=== PATIENT | male | born 1950 | race Caucasian/White ===

== ENCOUNTER 2020-09-23 13:07 | Emergency (ER) | payer MEDICARE ==
[~2020-09-23] VITALS: Ht 188 cm; Wt 82.6 kg
[2020-09-23] MEDS ORDERED: METHYLPREDNISOLONE SOD SUCC 125 MG/2ML VIAL IV STA (13:42)
[2020-09-23] MEDS ORDERED: FAMOTIDINE 20 MG/2 ML VIAL IV STA (13:42)
[2020-09-23] MEDS ORDERED: SODIUM CHLORIDE 0.9% 1000ML 1,000 ML IV STA (13:42)
[2020-09-23] MEDS ORDERED: DIPHENHYDRAMINE HCL INJ 50 MG/ML VIAL IV ONE (13:45)
[2020-09-23 15:47] VITALS: BP 111/68
== END 2020-09-23 15:49 | disposition home or self-care (01) ==
LOC: ER 13:44
DX: T78.40XA Allergy, unspecified, initial encounter (principal); Y92.096 Garden or yard of other non-institutional residence as the place of occurrence of the external cause
CPT/HCPCS: 99283; J1200; J2930; J7030

== ENCOUNTER 2020-12-24 11:18 | Inpatient (IN) | payer MEDICARE ==
[2020-12-24] VITALS (12 sets, daily range): BP systolic 106–148; BP diastolic 69–118
[~2020-12-24] VITALS: Ht 188 cm; Wt 85.9 kg
[2020-12-24] MEDS ORDERED: PIPERACILLIN/TAZOBACTAM 3.375 GM in SODIUM CHLORIDE 0.9% 50ML 50 ML IV STA (11:40)
[2020-12-24] MEDS ORDERED: SODIUM CHLORIDE 0.9% 1000ML 2,000 ML ONE (11:42)
[2020-12-24 11:44] LABS: BASOPHILS # (AUTO) 0.1 (0.0-0.1); BASOPHILS % 0.4 % (0.0-1.0); EOSINOPHILS # (AUTO) 0.1 (0.0-0.4); EOSINOPHILS % 0.2 % (0.0-6.0); HEMATOCRIT 43.7 % (38.2-49.6); HEMOGLOBIN 13.8 g/dL (14.0-18.0); LYMPHOCYTES # (AUTO) 1.6 (1.0-3.2); LYMPHOCYTES % 5.6 % (18.0-39.1); MEAN CORPUSCULAR HEMOGLOBIN 28.5 pg (28-32); MEAN CORPUSCULAR HGB CONC 31.6 g/dL (31-35); MEAN CORPUSCULAR VOLUME 90.3 fL (81-99); MONOCYTES # (AUTO) 0.8 (0.2-0.8); MONOCYTES % 2.8 % (4.4-11.3); NEUTROPHILS # (AUTO) 24.5 (2.1-6.9); PLATELET COUNT 248 x10e3/uL (140-360); RED BLOOD COUNT 4.84 x10e6/uL (4.3-5.7); RED CELL DISTRIBUTION WIDTH 18.5 % (11.7-14.4)
[2020-12-24] MEDS ORDERED: SODIUM CHLORIDE 0.9% IV SCH (11:45)
[2020-12-24 11:56] LABS: ABG HCO3 26 mmol/L (22-26); ABG PCO2 32 mmHg (35-45); ABG PH 7.52 (7.35-7.45); ABG PO2 68 mmHg (80-105); ABG TCO2 27
[2020-12-24] MEDS ORDERED: Vancomycin IV 1 GM in SODIUM CHLORIDE 0.9% 250ML 250 ML IV ONE (12:00)
[2020-12-24] MEDS ORDERED: ACETAMINOPHEN 325 MG TAB PO ONE (12:00)
[2020-12-24 12:07] LABS: CLARITY,URINE CLOUDY (CLEAR); COLOR,URINE YELLOW (YELLOW)
[2020-12-24 12:08] LABS: AMPHETAMINES SCREEN,URINE NEGATIVE (NEGATIVE); BENZODIAZEPINES SCREEN,URINE NEGATIVE (NEGATIVE); KETONES,URINE NEGATIVE (NEGATIVE); LEUKOCYTE ESTERASE ,URINE NEGATIVE (NEGATIVE); NITRITE,URINE NEGATIVE (NEGATIVE); PHENCYCLIDINE SCREEN,URINE NEGATIVE (NEGATIVE); PROTEIN,URINE DIPSTICK 2+ (NEGATIVE); URINE UROBILINOGEN 1 mg/dL (0.2 - 1)
[2020-12-24] MEDS ORDERED: ACETAMINOPHEN 1000 MG/100 ML IV STA (12:08)
[2020-12-24 12:13] LABS: ALBUMIN 3.3 g/dL (3.5-5.0); ANION GAP 20.3 mmol/L (8-16); CALCIUM 9.1 mg/dL (8.4-10.2); CREATININE, SERUM 1.02 mg/dL (0.72-1.25); POTASSIUM 4.3 mmol/L (3.5-5.1)
[2020-12-24] MEDS ORDERED: KETOROLAC TROMETHAMINE 30 MG/ML VIAL IV STA (12:14)
[2020-12-24 12:19] LABS: CREATINE KINASE MB 1.9 ng/mL (0-5.0); PARTIAL THROMBOPLASTIN TIME 29.2 seconds (23.8-35.5)
[2020-12-24 12:25] LABS: BACTERIA,URINE MANY /HPF
[2020-12-24 12:26] LABS: EPITHELIAL CELLS,URINE FEW /LPF; MUCUS,URINE MODERATE (RARE); TRANSITIONAL EPI CELLS,URINE FEW
[2020-12-24] MEDS ORDERED: LORAZEPAM INJ 2 MG/ML VIAL ONE (12:26)
[2020-12-24] MEDS ORDERED: LORAZEPAM INJ 2 MG/ML VIAL IV ONE (12:30)
[2020-12-24 12:50] LABS: BAND NEUTROPHILS % (MANUAL) 1 %; NUCLEATED RED BLOOD CELLS 1
[2020-12-24 12:51] LABS: LYMPHOCYTES % (MANUAL) 9 % (19-48); MONOCYTES % (MANUAL) 4 % (3.4-9.0); NEUTROPHILS % (MANUAL) 84 % (40-74); PLATELET ESTIMATE ADEQUATE; PLATELET MORPHOLOGY COMMENT FEW LARGE; RBC MORPHOLOGY COMMENT NORMAL; SMUDGE CELLS FEW
[2020-12-24] MEDS ORDERED: SODIUM CHLORIDE 0.9% 1000ML 1,000 ML IV SCH (13:00)
[2020-12-24] MEDS ORDERED: LACTATED RINGER'S 700 ML INJ ONE (14:45)
[2020-12-24] MEDS ORDERED: LACTATED RINGER'S 1,000 ML INJ ONE (15:00)
[2020-12-24] MEDS: CEFTRIAXONE 2 GM in SODIUM CHLORIDE 0.9% 100 ML IV SCH (15:33)
[2020-12-24] MEDS ORDERED: ACETAMINOPHEN 1000 MG/100 ML IV SCH (18:00)
[2020-12-24] MEDS ORDERED: PREDNISONE20 MG PO (18:52)
[2020-12-24] MEDS ORDERED: ATORVASTATIN CA10 MG PO (18:52)
[2020-12-24] MEDS ORDERED: METOPROLOL TART25 MG PO (18:52)
[2020-12-24] MEDS ORDERED: SUDAFED 12 HOU120 MG PO (18:52)
[2020-12-24] MEDS ORDERED: ASPIRIN EC81 MG PO (18:52)
[2020-12-24] MEDS ORDERED: TYLENOL EXTRA500 MG PO (18:52)
[2020-12-24] MEDS: ACYCLOVIR SODIUM IV SCH (21:39)
[2020-12-24] MEDS: SODIUM CHLORIDE 0.9% IV SCH (21:39)
[2020-12-24] MEDS ORDERED: FAMOTIDINE 20 MG/2 ML VIAL IV STA (22:12)
[2020-12-24] MEDS: LACTATED RINGER'S 1,000 ML INJ SCH (23:09)
[2020-12-25] VITALS (27 sets, daily range): BP systolic 119–158; BP diastolic 71–120
[2020-12-25] MEDS: Vancomycin IV 1 GM in SODIUM CHLORIDE 0.9% 250ML 250 ML IV SCH ×2 (00:52→12:51)
[2020-12-25] MEDS: CEFTRIAXONE 2 GM in SODIUM CHLORIDE 0.9% 100 ML IV SCH ×2 (02:54→15:58)
[2020-12-25] MEDS ORDERED: ACETAMINOPHEN 1000 MG/100 ML IV PRN (03:30)
[2020-12-25 04:10] LABS: ABG HCO3 27 mmol/L (22-26); ABG PCO2 38 mmHg (35-45); ABG PH 7.46 (7.35-7.45); ABG PO2 50 mmHg (80-105); ABG TCO2 28
[2020-12-25] MEDS: ACYCLOVIR SODIUM IV SCH ×2 (05:29→13:52)
[2020-12-25] MEDS: SODIUM CHLORIDE 0.9% IV SCH ×2 (05:29→13:52)
[2020-12-25 06:00] LABS: BASOPHILS % 0.2 % (0.0-1.0); EOSINOPHILS % 0.1 % (0.0-6.0); HEMATOCRIT 34.2 % (38.2-49.6); HEMOGLOBIN 11.3 g/dL (14.0-18.0); LYMPHOCYTES % 5.3 % (18.0-39.1); MEAN CORPUSCULAR VOLUME 87.7 fL (81-99); MONOCYTES # (AUTO) 0.4 (0.2-0.8); MONOCYTES % 2.1 % (4.4-11.3); NEUTROPHILS # (AUTO) 16.9 (2.1-6.9); NEUTROPHILS % 90.9 % (38.7-80.0); PLATELET COUNT 177 x10e3/uL (140-360); RED CELL DISTRIBUTION WIDTH 18.4 % (11.7-14.4)
[2020-12-25 06:31] LABS: ANION GAP 13.6 mmol/L (8-16); CALCIUM 8.3 mg/dL (8.4-10.2); CREATININE, SERUM 0.81 mg/dL (0.72-1.25); POTASSIUM 3.6 mmol/L (3.5-5.1)
[2020-12-25] MEDS: FAMOTIDINE 20 MG/2 ML VIAL IV SCH ×2 (08:36→17:00)
[2020-12-25] MEDS: LACTATED RINGER'S 1,000 ML INJ SCH (08:37)
[2020-12-25 08:46] LABS: BAND NEUTROPHILS % (MANUAL) 4 %; LYMPHOCYTES % (MANUAL) 3 % (19-48); NEUTROPHILS % (MANUAL) 93 % (40-74); PLATELET ESTIMATE ADEQUATE; PLATELET MORPHOLOGY COMMENT NORMAL; RBC MORPHOLOGY COMMENT NORMAL; SMUDGE CELLS FEW
[2020-12-25] MEDS ORDERED: HYDROCORTISONE SOD SUCCINATE 100 MG VIAL IV SCH (13:30)
[2020-12-26] VITALS (15 sets, daily range): BP systolic 137–175; BP diastolic 91–112
[2020-12-26] MEDS: LACTATED RINGER'S 1,000 ML INJ SCH (01:09)
[2020-12-26] MEDS: CEFTRIAXONE 2 GM in SODIUM CHLORIDE 0.9% 100 ML IV SCH ×2 (02:22→15:00)
[2020-12-26 06:19] LABS: BASOPHILS % 0.1 % (0.0-1.0); EOSINOPHILS % 0.1 % (0.0-6.0); HEMATOCRIT 34.3 % (38.2-49.6); LYMPHOCYTES # (AUTO) 1.4 (1.0-3.2); LYMPHOCYTES % 8.4 % (18.0-39.1); MEAN CORPUSCULAR HEMOGLOBIN 28.6 pg (28-32); MEAN CORPUSCULAR HGB CONC 32.1 g/dL (31-35); MEAN CORPUSCULAR VOLUME 89.1 fL (81-99); MONOCYTES # (AUTO) 0.6 (0.2-0.8); MONOCYTES % 3.6 % (4.4-11.3); NEUTROPHILS # (AUTO) 14.6 (2.1-6.9); PLATELET COUNT 158 x10e3/uL (140-360); RED BLOOD COUNT 3.85 x10e6/uL (4.3-5.7); RED CELL DISTRIBUTION WIDTH 17.9 % (11.7-14.4)
[2020-12-26 06:39] LABS: ALBUMIN 2.1 g/dL (3.5-5.0); ALBUMIN/GLOBULIN RATIO 0.6 (0.8-2.0); ANION GAP 12.2 mmol/L (8-16); CALCIUM 8.2 mg/dL (8.4-10.2); CREATININE, SERUM 0.77 mg/dL (0.72-1.25); POTASSIUM 3.2 mmol/L (3.5-5.1)
[2020-12-26] MEDS ORDERED: IBUPROFEN 600 MG TAB PO PRN (08:30)
[2020-12-26] MEDS ORDERED: ACETAMINOPHEN 325 MG/10 ML UDC PO PRN (08:30)
[2020-12-26] MEDS: POTASSIUM CHLORIDE 20MEQ/100ML 100 ML IV SCH ×2 (09:25→10:00)
[2020-12-26] MEDS: FAMOTIDINE 20 MG/2 ML VIAL IV SCH ×2 (09:25→17:00)
[2020-12-26] MEDS: METOPROLOL TARTRATE 25 MG TAB PO SCH ×2 (09:25→17:28)
[2020-12-26] MEDS: ASPIRIN 81 MG ENTERIC COATED PO SCH (09:29)
[2020-12-26] MEDS: HYDROCORTISONE SOD SUCCINATE 100 MG VIAL IV SCH ×2 (17:00→21:26)
[2020-12-26] MEDS: ATORVASTATIN 10 MG TAB PO SCH (21:26)
[2020-12-27] VITALS (8 sets, daily range): BP systolic 125–164; BP diastolic 53–108
[2020-12-27] MEDS: CEFTRIAXONE 2 GM in SODIUM CHLORIDE 0.9% 100 ML IV SCH (02:45)
[2020-12-27 07:06] LABS: BASOPHILS % 0.2 % (0.0-1.0); HEMOGLOBIN 11.4 g/dL (14.0-18.0); LYMPHOCYTES # (AUTO) 1.1 (1.0-3.2); LYMPHOCYTES % 8.7 % (18.0-39.1); MEAN CORPUSCULAR HEMOGLOBIN 28.8 pg (28-32); MEAN CORPUSCULAR HGB CONC 32.6 g/dL (31-35); MEAN CORPUSCULAR VOLUME 88.4 fL (81-99); MONOCYTES # (AUTO) 0.4 (0.2-0.8); MONOCYTES % 3.2 % (4.4-11.3); NEUTROPHILS % 86.8 % (38.7-80.0); PLATELET COUNT 178 x10e3/uL (140-360); RED BLOOD COUNT 3.96 x10e6/uL (4.3-5.7); RED CELL DISTRIBUTION WIDTH 17.8 % (11.7-14.4)
[2020-12-27 07:26] LABS: ALBUMIN 2.4 g/dL (3.5-5.0); ALBUMIN/GLOBULIN RATIO 0.7 (0.8-2.0); ANION GAP 15.8 mmol/L (8-16); CALCIUM 8.9 mg/dL (8.4-10.2); CREATININE, SERUM 0.79 mg/dL (0.72-1.25); POTASSIUM 3.8 mmol/L (3.5-5.1)
[2020-12-27] MEDS: FAMOTIDINE 20 MG/2 ML VIAL IV SCH ×2 (10:01→17:37)
[2020-12-27] MEDS: HYDROCORTISONE SOD SUCCINATE 100 MG VIAL IV SCH ×2 (10:02→22:47)
[2020-12-27] MEDS: METOPROLOL TARTRATE 25 MG TAB PO SCH ×2 (10:02→17:37)
[2020-12-27] MEDS: ASPIRIN 81 MG ENTERIC COATED PO SCH (10:02)
[2020-12-27] MEDS: CLINDAMYCIN 600MG / 50ML 50 ML IV SCH (17:37)
[2020-12-27] MEDS: ATORVASTATIN 10 MG TAB PO SCH (22:47)
[2020-12-28] VITALS (8 sets, daily range): BP systolic 138–165; BP diastolic 82–115
[2020-12-28] MEDS: CLINDAMYCIN 600MG / 50ML 50 ML IV SCH ×5 (00:36→23:59)
[2020-12-28 05:04] LABS: BASOPHILS % 0.2 % (0.0-1.0); EOSINOPHILS % 0.1 % (0.0-6.0); HEMOGLOBIN 10.2 g/dL (14.0-18.0); LYMPHOCYTES # (AUTO) 1.3 (1.0-3.2); LYMPHOCYTES % 11.2 % (18.0-39.1); MEAN CORPUSCULAR HEMOGLOBIN 28.7 pg (28-32); MEAN CORPUSCULAR HGB CONC 32.9 g/dL (31-35); MEAN CORPUSCULAR VOLUME 87.1 fL (81-99); MONOCYTES # (AUTO) 0.6 (0.2-0.8); MONOCYTES % 5.7 % (4.4-11.3); NEUTROPHILS # (AUTO) 9.2 (2.1-6.9); PLATELET COUNT 201 x10e3/uL (140-360); RED BLOOD COUNT 3.56 x10e6/uL (4.3-5.7); RED CELL DISTRIBUTION WIDTH 17.4 % (11.7-14.4)
[2020-12-28 05:50] LABS: ANION GAP 15.1 mmol/L (8-16); CALCIUM 8.1 mg/dL (8.4-10.2); CREATININE, SERUM 0.83 mg/dL (0.72-1.25); POTASSIUM 3.1 mmol/L (3.5-5.1)
[2020-12-28] MEDS: HYDROCORTISONE SOD SUCCINATE 100 MG VIAL IV SCH (09:11)
[2020-12-28] MEDS: ASPIRIN 81 MG ENTERIC COATED PO SCH (09:11)
[2020-12-28] MEDS: FAMOTIDINE 20 MG/2 ML VIAL IV SCH (09:11)
[2020-12-28] MEDS: METOPROLOL TARTRATE 25 MG TAB PO SCH ×2 (09:12→17:00)
[2020-12-28] MEDS ORDERED: PREDNISONE 20 MG TAB PO ONE (10:00)
[2020-12-28] MEDS: POTASSIUM CHLORIDE 10MEQ EA PO SCH ×3 (10:47→15:53)
[2020-12-28] MEDS: CEFEPIME 1 GM in SODIUM CHLORIDE 0.9% 50ML 50 ML IV SCH ×2 (11:15→21:03)
[2020-12-28] MEDS: FAMOTIDINE 20 MG TAB PO SCH (15:52)
[2020-12-28] MEDS: ATORVASTATIN 10 MG TAB PO SCH (21:03)
[2020-12-29 00:07] VITALS: BP 135/99
[2020-12-29] MEDS: CLINDAMYCIN 600MG / 50ML 50 ML IV SCH (05:35)
[2020-12-29 05:59] LABS: BASOPHILS % 0.3 % (0.0-1.0); EOSINOPHILS # (AUTO) 0.1 (0.0-0.4); EOSINOPHILS % 0.5 % (0.0-6.0); HEMATOCRIT 31.6 % (38.2-49.6); HEMOGLOBIN 10.3 g/dL (14.0-18.0); LYMPHOCYTES # (AUTO) 2.4 (1.0-3.2); LYMPHOCYTES % 19.9 % (18.0-39.1); MEAN CORPUSCULAR HEMOGLOBIN 28.8 pg (28-32); MEAN CORPUSCULAR HGB CONC 32.6 g/dL (31-35); MEAN CORPUSCULAR VOLUME 88.3 fL (81-99); MONOCYTES # (AUTO) 1.2 (0.2-0.8); MONOCYTES % 9.9 % (4.4-11.3); NEUTROPHILS % 66.8 % (38.7-80.0); PLATELET COUNT 270 x10e3/uL (140-360); RED BLOOD COUNT 3.58 x10e6/uL (4.3-5.7); RED CELL DISTRIBUTION WIDTH 17.5 % (11.7-14.4)
[2020-12-29 06:09] VITALS: BP 148/87
[2020-12-29 06:20] LABS: ANION GAP 14.1 mmol/L (8-16); CALCIUM 8.9 mg/dL (8.4-10.2); CREATININE, SERUM 0.84 mg/dL (0.72-1.25); POTASSIUM 3.1 mmol/L (3.5-5.1)
[2020-12-29 06:22] LABS: MAGNESIUM 1.7 MG/DL (1.3-2.1); PHOSPHORUS 2.3 MG/DL (2.3-4.7)
[2020-12-29 07:25] VITALS: BP 174/92
[2020-12-29] MEDS: FAMOTIDINE 20 MG TAB PO SCH (07:30)
[2020-12-29 08:00] VITALS: BP 174/92
[2020-12-29] MEDS: CEFEPIME 1 GM in SODIUM CHLORIDE 0.9% 50ML 50 ML IV SCH (09:00)
[2020-12-29] MEDS ORDERED: FUROSEMIDE 40 MG TAB PO SCH (09:00)
[2020-12-29] MEDS ORDERED: PREDNISONE 20 MG TAB PO SCH (09:00)
[2020-12-29] MEDS: ASPIRIN 81 MG ENTERIC COATED PO SCH (09:00)
[2020-12-29] MEDS: METOPROLOL TARTRATE 25 MG TAB PO SCH (09:00)
[2020-12-29] MEDS ORDERED: CLINDAMYCIN HC150 MG PO (09:52)
[2020-12-29] MEDS ORDERED: CIPRO500 MG PO (09:53)
[2020-12-29] MEDS ORDERED: LASIX40 MG PO (09:53)
[2020-12-29] MEDS ORDERED: K-DUR10 MEQ PO (09:54)
[2020-12-29] MEDS ORDERED: KDUR (09:54)
[2020-12-29] MEDS ORDERED: POTASSIUM CHLORIDE 10MEQ EA PO SCH (10:00)
[2020-12-30] MEDS ORDERED: POTASSIUM CHLORIDE 10MEQ EA PO SCH (09:00)
== END 2020-12-29 11:18 | disposition home or self-care (01) | DRG 871 ==
LOC: ER 11:23 → ERHOLD 12:57 → ICU 13:54 → MED/SURG2 12-26 10:36
PROVIDERS: ADMIT Internal Medicine; ATTEND Internal Medicine
PROC: 02HV33Z Insertion of Infusion Device into Superior Vena Cava, Percutaneous Approach (ICD-10-PCS; principal; 2020-12-24)
DX: A41.9 Sepsis, unspecified organism (principal); R65.21 Severe sepsis with septic shock; G93.41 Metabolic encephalopathy; G92.9 Unspecified toxic encephalopathy; L03.115 Cellulitis of right lower limb; E87.2 Acidosis; N17.9 Acute kidney failure, unspecified; N30.90 Cystitis, unspecified without hematuria; N41.9 Inflammatory disease of prostate, unspecified; Z20.822 Contact with and (suspected) exposure to COVID-19; I10 Essential (primary) hypertension; F01.50 Vascular dementia, unspecified severity, without behavioral disturbance, psychotic disturbance, mood disturbance, and anxiety; Z86.73 Personal history of transient ischemic attack (TIA), and cerebral infarction without residual deficits
CPT/HCPCS: 36415; 36569; 36600; 51700; 70450; 71045; 80048; 80053; 80307; 80320; 81001; 82140; 82550; 82553; 82805; 82948; 83605; 83735; 84100; 84484; 85025; 85610; 85730; 86789; 87040; 87086; 87529; 93005; 94799; 99285; J0692; J0696; J1720; J1885; J2060; J2543; J3370; J3480; J7030; J7050; J7121; J7512; U0002

== ENCOUNTER → 2021-04-07 | Outpatient (CLI) | payer MEDICARE ==
[~2021-04-07] MED LIST: ASPIRIN EC81 MG PO; ATORVASTATIN CA10 MG PO; CIPRO500 MG PO; CLINDAMYCIN HC150 MG PO; K-DUR10 MEQ PO; KDUR; LASIX40 MG PO; METOPROLOL TART25 MG PO; PREDNISONE20 MG PO; SUDAFED 12 HOU120 MG PO; TYLENOL EXTRA500 MG PO
== END ==
LOC: RAD 10:45
PROVIDERS: ATTEND Internal Medicine
DX: S20.211A Contusion of right front wall of thorax, initial encounter (principal)
CPT/HCPCS: 71046